=== PATIENT | male | born 1955 | race African-American/Black ===

== ENCOUNTER 2017-02-26 14:42 | Emergency (ER) | payer MEDICAID ==
[~2017-02-26] VITALS: Ht 170.2 cm; Wt 69.0 kg
[~2017-02-26 14:42] MED LIST: LEVO750T46 PO; PROM6.25 PO; TRAM50TA3 PO
[2017-02-26 16:07] LABS: BASOPHILS % 0.6 % (0.0-2.0); EOSINOPHILS % 0.9 % (0.0-5.0); HEMATOCRIT. 39.1 % (42.0-52.0); HEMOGLOBIN. 13.2 g/dL (14.0-18.0); LYMPHOCYTES % 16.9 % (20.0-50.0); MEAN CORPUSCULAR HEMOGLOBIN 32.5 pg (28.0-32.0); MEAN CORPUSCULAR VOLUME 96.3 fL (80.0-94.0); MEAN PLATELET VOLUME 9.1 fl (7.4-10.4); MONOCYTES % 7.8 % (2.0-8.0); NEUTROPHILS % 73.8 % (40.0-76.0); PLATELET 205 x1000/uL (130-400); RED BLOOD CELL COUNT 4.06 mill/uL (4.7-6.1); RED CELL DISTRIBUTION WIDTH 14.3 % (11.6-14.6)
[2017-02-26 16:12] LABS: PARTIAL THROMBOPLASTIN TIME 21.7 sec (23.4-31.0); PROTHROMBIN TIME 10.8 sec (9.4-11.6)
[2017-02-26 16:37] LABS: CARBON DIOXIDE 27 mEq/L (21-32); CHLORIDE 104 mEq/L (98-107); TROPONIN I < 0.02 ng/mL (0.00-0.04)
[2017-02-26] MEDS ORDERED: SODIUM CHLORIDE 0.9% 1,000 ML IV ONE (19:11)
[2017-02-26 20:08] LABS: *AMPHETAMINES SCREEN URINE PRESUMTIVE POSITIVE (NEGATIVE); *BARBITURATES SCREEN URINE NEGATIVE (NEGATIVE); *BENZODIAZEPINES SCREEN URINE NEGATIVE (NEGATIVE); *COCAINE SCREEN URINE NEGATIVE (NEGATIVE); CANNABINOID URINE SCREEN PRESUMTIVE POSITIVE (NEGATIVE); METHADONE URINE SCREEN NEGATIVE (NEGATIVE); OPIATES URINE SCREEN NEGATIVE (NEGATIVE); PHENCYCLIDINE URINE SCREEN PRESUMTIVE POSITIVE (NEGATIVE)
[2017-02-26 20:37] VITALS: BP 130/70
== END 2017-02-26 21:00 | disposition home or self-care (01) ==
LOC: ER 15:04
DX: R42 Dizziness and giddiness (principal); F19.10 Other psychoactive substance abuse, uncomplicated; R11.0 Nausea; F12.10 Cannabis abuse, uncomplicated; I10 Essential (primary) hypertension; R79.1 Abnormal coagulation profile
CPT/HCPCS: 36415; 70450; 71010; 80053; 80305; 83690; 84484; 85025; 85610; 85730; 93005; 96360; 99285; G0482; J7030

== ENCOUNTER 2018-05-15 13:26 | Emergency (ER) | payer MEDICAID ==
[~2018-05-15] VITALS: Ht 172.7 cm; Wt 80.0 kg
[~2018-05-15 13:26] MED LIST changes: -PROM6.25 PO; +PROM6.254 PO
[2018-05-15] MEDS ORDERED: REGADENOSON 0.4 MG/5 ML IV ONE (13:48)
[2018-05-15] MEDS ORDERED: IBUPROFEN 600MG TABLET PO ONE (14:45)
[2018-05-15 16:19] VITALS: BP 138/85
== END 2018-05-15 16:20 | disposition home or self-care (01) ==
LOC: ER 13:26
DX: M54.2 Cervicalgia (principal); M47.892 Other spondylosis, cervical region; M77.8 Other enthesopathies, not elsewhere classified; I10 Essential (primary) hypertension; F12.10 Cannabis abuse, uncomplicated; Z86.19 Personal history of other infectious and parasitic diseases; Z87.828 Personal history of other (healed) physical injury and trauma
CPT/HCPCS: 71120; 72040; 99283; J2785

== ENCOUNTER 2020-07-23 10:37 | Emergency (ER) | payer MEDICAID ==
[~2020-07-23] VITALS: Ht 175.3 cm; Wt 87.8 kg
[2020-07-23] MEDS ORDERED: IBUPROFEN 600MG TABLET PO NR (11:49)
[2020-07-23 11:56] VITALS: BP 136/75
[2020-07-23] MEDS ORDERED: T3 PO (13:20)
[2020-07-23] MEDS ORDERED: IBUP-2029 PO (13:20)
== END 2020-07-23 14:13 | disposition home or self-care (01) ==
LOC: ER 10:37
DX: S92.354A Nondisplaced fracture of fifth metatarsal bone, right foot, initial encounter for closed fracture (principal); I10 Essential (primary) hypertension; W01.0XXA Fall on same level from slipping, tripping and stumbling without subsequent striking against object, initial encounter; Y93.9 Activity, unspecified; Y92.89 Other specified places as the place of occurrence of the external cause; Z86.19 Personal history of other infectious and parasitic diseases; Z98.890 Other specified postprocedural states
CPT/HCPCS: 29515; 73630; 99283

== ENCOUNTER → 2021-04-20 | Outpatient (CLI) | payer MEDICARE, OTHER ==
[~2021-04-20] MED LIST changes: +AMLO5TAB88 MT; +AMLO5TAB88 PO; +BACL-141 PO; +BUPIVACAINE HCL/PF 0.5% (5MG/ML) 10ML ONE; +CALC-959 PO; +FENTANYL CITRATE/PF 50MCG/ML 2ML VIAL ONE; +HYDR-4005 PO; +HYDR12.54 PO; +IBUP-2029 PO; +MIDAZOLAM HCL 2 MG/2 ML VIAL ONE; +MULT-462 PO; +SKIN ADHESIVE 0.7 GM EA TOP ONE; +T3 PO
== END | disposition home or self-care (01) ==
LOC: LAB 13:07
PROVIDERS: ATTEND Surgery
DX: Z01.812 Encounter for preprocedural laboratory examination (principal); Z20.822 Contact with and (suspected) exposure to COVID-19
CPT/HCPCS: 87426

== ENCOUNTER 2021-04-21 06:15 | Day surgery (SDC) | payer MEDICARE, OTHER ==
[~2021-04-21] VITALS: Ht 175.3 cm; Wt 88.5 kg
[~2021-04-21 06:15] MED LIST changes: -AMLO5TAB88 MT; -AMLO5TAB88 PO; -BACL-141 PO; -BUPIVACAINE HCL/PF 0.5% (5MG/ML) 10ML ONE; -CALC-959 PO; -FENTANYL CITRATE/PF 50MCG/ML 2ML VIAL ONE; -HYDR-4005 PO; -HYDR12.54 PO; +LACTATED RINGERS 1,000 ML IV SCH; -MIDAZOLAM HCL 2 MG/2 ML VIAL ONE; -MULT-462 PO; -SKIN ADHESIVE 0.7 GM EA TOP ONE
[2021-04-21] MEDS ORDERED: BUPIVACAINE HCL/PF 0.5% (5MG/ML) 10ML ONE (07:27)
[2021-04-21] MEDS ORDERED: HYDROMORPHONE HCL/PF 2MG/ML CPJ IV PRN ×2 (10:00)
[2021-04-21] MEDS ORDERED: MEPERIDINE HCL/PF 25MG/ML CPJ IV PRN ×2 (10:00)
[2021-04-21] MEDS ORDERED: LABETALOL 5MG/ML SYR 20 MG/4 ML SYRINGE IV PRN ×2 (10:00)
[2021-04-21] MEDS ORDERED: ONDANSETRON HCL 4MG/2ML INJ IV PRN ×2 (10:00)
[2021-04-21] MEDS ORDERED: AMLO5TAB88 MT (10:58)
[2021-04-21] MEDS ORDERED: HYDR12.54 PO (10:58)
[2021-04-21] MEDS ORDERED: BACL-141 PO (10:59)
[2021-04-21] MEDS ORDERED: HYDR-4005 PO (11:03)
[2021-04-21] MEDS ORDERED: MULT-462 PO (11:03)
[2021-04-21] MEDS ORDERED: CALC-959 PO (11:03)
[2021-04-21] MEDS ORDERED: AMLO5TAB88 PO (11:11)
== END 2021-04-21 11:35 | disposition home or self-care (01) ==
LOC: OR 06:15
PROVIDERS: ATTEND Surgery
DX: R22.2 Localized swelling, mass and lump, trunk (principal); D17.22 Benign lipomatous neoplasm of skin and subcutaneous tissue of left arm; I10 Essential (primary) hypertension; Z87.891 Personal history of nicotine dependence; Z79.899 Other long term (current) drug therapy; Z98.890 Other specified postprocedural states
CPT/HCPCS: 21931; 88304; J2250; J3010; J3490

== ENCOUNTER 2022-02-11 13:09 | Emergency (ER) | payer MEDICARE, OTHER ==
[~2022-02-11] VITALS: Ht 167.6 cm; Wt 77.0 kg
[~2022-02-11 13:09] MED LIST changes: +AMLO5TAB88 PO; +BACL-141 PO; +CALC-959 PO; +HYDR-4005 PO; +HYDR12.54 PO; -IBUP-2029 PO; -LACTATED RINGERS 1,000 ML IV SCH; -LEVO750T46 PO; +MULT-462 PO; -PROM6.254 PO; -T3 PO; -TRAM50TA3 PO
[2022-02-11] MEDS ORDERED: BACITRACIN ZINC OINT UDPKT TOP ONE (15:30)
[2022-02-11] MEDS ORDERED: ACETAMINOPHEN 325MG TABLET PO ONE (15:30)
[2022-02-11] MEDS ORDERED: CEPH500C2 MT (16:42)
[2022-02-11] MEDS ORDERED: BO1 TP (16:42)
[2022-02-11 17:19] VITALS: BP 136/75
== END 2022-02-11 17:21 | disposition home or self-care (01) ==
LOC: ER 13:21
DX: S81.811A Laceration without foreign body, right lower leg, initial encounter (principal); I10 Essential (primary) hypertension; W26.9XXA Contact with unspecified sharp object(s), initial encounter; Y93.9 Activity, unspecified; Y92.9 Unspecified place or not applicable; Z86.19 Personal history of other infectious and parasitic diseases; Z87.19 Personal history of other diseases of the digestive system
CPT/HCPCS: 99283; Z7610